=== PATIENT | female | born 1930 | race Caucasian/White ===

== ENCOUNTER 2019-10-16 15:40 | Emergency (ER) | payer MEDICARE ==
[~2019-10-16] VITALS: Ht 160 cm; Wt 54.4 kg
--- NOTE | 2019-10-16 16:36 | Diagnostic Imaging Report ---
INDICATION: Injury to right hand. TECHNIQUE: AP, oblique, and lateral views of the right hand were obtained. FINDINGS: There is an acute fracture of the base of the 4th proximal phalanx extending to the MCP joint. There is dislocation of the 2nd MCP joint with dorsal displacement of the proximal phalanx relative to the 2nd metacarpal. There is underlying degenerative change of the 1st MCP joint, carpometacarpal joint, and interphalangeal joint. IMPRESSION: Underlying chronic findings. Acute fracture at the base of the 4th proximal phalanx. Dislocation of the 2nd MCP joint. Dictated by: Dictated on workstation # [id number]
--- NOTE | 2019-10-16 16:37 | Diagnostic Imaging Report ---
INDICATION: Right knee pain post injury. TECHNIQUE: AP, oblique, and lateral views of the right knee were obtained. FINDINGS: No fracture or acute bony abnormality is seen. 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 There is no significant joint space narrowing. IMPRESSION: Chronic findings. No acute abnormality of the right knee. Dictated by: Dictated on workstation # [id number]
[2019-10-16] MEDS ORDERED: LIDOCAINE 1% INJ 20 ML 20 ML VIAL INJ ONE (17:00)
--- OUTSIDE RECORDS SUMMARY | 2019-10-16 17:32 | XMS REPORT | Continuity of Care Document ---
Author Organization Unknown Address Unknown Phone Unavailable Allergies There is no data. Medications There is no data. Problems There is no data. Procedures There is no data. Results Test Result Range CULTURE, EAR - 09/25/18 15:42 CULTURE, EAR, EXTERNAL SEE NOTE NRG Encounters ACCT No. Visit Date/Time Discharge Status Pt. Type Provider Facility Loc./Unit Complaint [id number] 04/09/2019 13:40:00 04/09/2019 23:59: [facility] [id number] 09/25/2018 15:00:00 Document Registration
--- NOTE | 2019-10-16 17:48 | ED Upper Extremity ---
General Chief Complaint: Trauma-Non Activation Stated Complaint: FALL Nursing Triage Note: R knee ST (approx 3cm) R wrist ST R forearm ST Superficial abrasion to R lateral elbow. Bruising et deformity noted to R 2nd finger. Nursing Sepsis Screen: No Definite Risk Source: patient, EMS Exam Limitations: no limitations History of Present Illness Date Seen by Provider: Oct 16, 2019 Time Seen by Provider: 15:47 Initial Comments 89-year-old female who was brought to the emergency room by [facility] after tripping and falling at Dr. Craven dental office. She reports that she was walking and when she fell landing on her right hand. She has several skin tears. Right knee, right wrist, right forearm, right elbow. She has obvious deformity to her right second finger. She is alert and oriented on arrival to the emergency room. She denies striking her head, loss of consciousness, head or neck pain. She complains of pain to her right hand, and right knee. Location Injury Occurred: Dentist office. Onset: just prior to arrival Pain/Injury Location: right hand Method of Injury: fell Allergies and Home Medications Allergies Coded Allergies: No Known Drug Allergies (Unverified , 10/16/19) Patient Home Medication List Home Medication List Reviewed: Yes Review of Systems Constitutional: see HPI; No chills, No fever Musculoskeletal: see HPI, joint pain (right hand pain.) Skin: see HPI, other (skin tears) All Other Systems Reviewed Negative Unless Noted: Yes Past Xnmnnrg-Tvtuuk-Irinqz Hx Past Med/Social Hx: Reviewed Nursing Past Med/Soc Hx Patient Social History Alcohol Use: Denies Use Recreational Drug Use: No Smoking Status: Never a Smoker 2nd Hand Smoke Exposure: No Recent Foreign Travel: No Contact w/Someone Who Travel: No Recent Infectious Disease Expo: No Recent Hopitalizations: No Seasonal Allergies Seasonal Allergies: Yes Past Medical History Surgeries: No Respiratory: No Cardiac: No Integumentary: No Family Medical History Reviewed Nursing Family Hx Physical Exam Vital Signs Vital Signs - First Documented 10/16/19 15:45 Temp 36.5 Pulse 75 Resp 18 B/P (MAP) 158/96 (116) Pulse Ox 96 O2 Delivery Room Air Capillary Refill : Less Than 3 Seconds Height, Weight, BMI Height: '" Weight: lbs. oz. kg; 21.00 BMI Method: General Appearance: WD/WN, no apparent distress HEENT: PERRL/EOMI, normal ENT inspection, TMs normal, pharynx normal Neck: non-tender, full range of motion, supple, normal inspection Cardiovascular: normal peripheral pulses, regular rate, rhythm, no edema, no gallop, no JVD, no murmur Respiratory: chest non-tender, lungs clear, normal breath sounds, no respirator y distress, no accessory muscle use Gastrointestinal: normal bowel sounds, non tender, soft, no organomegaly, no pulsatile mass Hand: Right, bone tenderness, deformity, ecchymosis (right second finger deformity) Neurologic/Psychiatric: alert, normal mood/affect, oriented x 3 Skin: normal color, warm/dry, other (skin tear to the right forearm, right elbow, right knee.) Procedures/Interventions Splinting and Joint Reduction : Pre-Proc Neuro Vasc Exam: normal Post-Proc Neuro Vasc Exam: normal Progress Digital block was performed on the right second finger with lidocaine 1% without epinephrine.. Gentle pressure was applied and joint was able to be reduced. Patient tolerated procedure well. Patient was placed in finger splint. Pre-and post neurovascular status remained intact. Progress/Results/Core Measures Results/Orders My Orders Orders - LACHO CASEY Knee, Right, 3 Views (10/16/19 15:47) Hand, Right, 3 Views (10/16/19 15:47) Lidocaine 1% Inj 20 Ml (Xylocaine 1% Inj (10/16/19 17:00) Hand, Right, 3 Views (10/16/19 17:22) Dipht,Pertuss(Acell),Tet Adult (Boostrix (10/16/19 18:11) Dipht,Pertuss(Acell),Tet Adult (Boostrix (10/16/19 18:15) Medications Given in ED Current Medications Medications Dose Ordered Sig/Diana Route Start Time Stop Time Status Last Admin Dose Admin Diphtheria/ Tetanus/Acell Pertussis 0.5 ml ONCE ONCE IM 10/16/19 18:15 10/16/19 18:16 DC 10/16/19 18:16 0.5 ML Lidocaine HCl 20 ml ONCE ONCE INJ 10/16/19 17:00 10/16/19 17:01 DC 10/16/19 17:15 20 ML Vital Signs/I&O 10/16/19 10/16/19 15:45 18:23 Temp 36.5 36.6 Pulse 75 82 Resp 18 18 B/P (MAP) 158/96 (116) 169/78 (116) Pulse Ox 96 98 O2 Delivery Room Air Room Air Blood Pressure Mean: 116 Progress Progress Note : Time: 17:46 Progress Note I have seen and evaluated the patient. Her skin tears were all cleaned, approximated, covered with Tegaderm. She was placed in finger splints for fracture and post reduction. Patient tolerated procedure well. She agrees with plan of care, plans for discharge, return precautions were given. Departure Impression Primary Impression: Finger dislocation Qualified Codes: S63.259A - Unspecified dislocation of unspecified finger, initial encounter Additional Impressions: Finger fracture Qualified Codes: S62.644A - Nondisplaced fracture of proximal phalanx of right ring finger, initial encounter for closed fracture Fall Disposition: 01 HOME, SELF-CARE Condition: Stable/Unchanged Departure-Patient Inst. Decision time for Depature: 17:46 Referrals: GLORIA SANCHES DO Patient Instructions: Finger Dislocation, Finger Fracture Add. Discharge Instructions: You may use ibuprofen and Tylenol as needed for pain relief. Ice to the sore areas at 20 minute intervals for pain and swelling. Watch for signs of infection such as increased redness, swelling, drainage, pain. Change your dressings daily. Wear the splint until you follow up with [facility]. Call tomorrow to schedule an appointment with [facility] for close follow-up and possible splinting. Return back to the emergency room for worsening symptoms or concerns as needed. All discharge instructions reviewed with patient and/or family. Voiced understanding. LACHO CASEY Oct 16, 2019 17:48
--- NOTE | 2019-10-16 17:51 | Diagnostic Imaging Report ---
INDICATION: Right hand injury. FINDINGS: Three views of the right hand show degenerative changes of the first MCP and IP joints. There is a fracture at the base of the proximal phalanx of the 4th finger. This is obliquely oriented and minimally angulated and located near the base of the proximal phalanx. IMPRESSION: Degenerative changes in the thumb as noted. Fracture at the base of the proximal phalanx of the right 4th finger. Dictated by: Dictated on workstation # [id number]
[2019-10-16] MEDS ORDERED: TETANUS,DIPTH,PERTUSS P/F (BOOSTRIX) 0.5 ML VIAL IM ONE ×2 (18:11→18:15)
[2019-10-16 18:23] VITALS: BP 169/78
== END 2019-10-16 18:23 | disposition home or self-care (01) ==
LOC: EDUNIT# 15:40 → ER 15:41
DX: S62.644A Nondisplaced fracture of proximal phalanx of right ring finger, initial encounter for closed fracture (principal); S63.260A Dislocation of metacarpophalangeal joint of right index finger, initial encounter; S51.811A Laceration without foreign body of right forearm, initial encounter; S51.011A Laceration without foreign body of right elbow, initial encounter; S81.011A Laceration without foreign body, right knee, initial encounter; Z23 Encounter for immunization; W01.0XXA Fall on same level from slipping, tripping and stumbling without subsequent striking against object, initial encounter; Y92.531 Health care provider office as the place of occurrence of the external cause
CPT/HCPCS: 29130; 64450; 73130; 73562; 90715

== ENCOUNTER → 2021-05-13 | Outpatient (CLI) | payer MEDICARE | LOC: RAD FS 11:44 → MERGE 11:44 | PROVIDERS: ATTEND Nurse Practitioner Family | DX: R05.2 Subacute cough (principal); R06.02 Shortness of breath; R06.09 Other forms of dyspnea ==

== ENCOUNTER → 2021-05-13 | Outpatient (CLI) | payer MEDICARE ==
--- NOTE | 2021-05-13 13:58 | Diagnostic Imaging Report ---
EXAMINATION: Chest, 2 views. HISTORY: Subacute cough, SOB, dyspnea. COMPARISON: None available. FINDINGS: Heart size and pulmonary vasculature are normal. There are coarse interstitial opacities within the lungs with evidence of hyperexpansion suggesting background chronic lung disease. No focal consolidation. Blunting of the left costophrenic angle. No pneumothorax. Degenerative changes of the thoracic spine. Osseous structures are otherwise intact. IMPRESSION: Findings suggestive of background chronic lung disease. Likely left pleural thickening or trace pleural fluid. No other acute radiographic abnormality in the chest. Dictated by: Dictated on workstation # [id number]
== END ==
LOC: RAD FS 12:00
PROVIDERS: ATTEND Nurse Practitioner Family
DX: R05.2 Subacute cough (principal); R06.02 Shortness of breath; R06.00 Dyspnea, unspecified
CPT/HCPCS: 71046

== ENCOUNTER 2021-06-25 01:49 | Emergency (ER) | payer MEDICARE ==
[~2021-06-25] VITALS: Ht 160 cm; Wt 52.2 kg
[2021-06-25] MEDS ORDERED: RT-ALBUTEROL/IPRATROPIUM 3 ML (DUONEB) VIAL INH STA (01:58)
--- NOTE | 2021-06-25 02:01 | ED Dyspnea ---
General Stated Complaint: SOB Source of Information: Patient History of Present Illness Date Seen by Provider: Jun 25, 2021 Time Seen by Provider: 01:51 Initial Comments 89-year-old female presenting with complaints of increased shortness of breath. She has been on multiple antibiotics over the last few weeks. She just was started on Zithromax on June 23. She has a history of asthma per the patient report. She was having wheezing and shortness of breath with speaking and wanting to quit sentences. She denied having chest pain, headache, abdominal pain, swelling. She denied having a history of heart failure or heart problems. She was very anxious with her shortness of breath. Shortly after arriving in the ED she did have an episode of nausea and vomiting with her anxiety. Timing/Duration: Waxing and Waning Severity: Severe Activities at Onset: Activity Prior Episodes/Possible Cause: Chronic Episodes, Frequent Episodes Associated Symptoms: Anxiety, Cough, Wheezing Allergies and Home Medications Allergies Coded Allergies: No Known Drug Allergies (Unverified , 10/16/19) Patient Home Medication List Home Medication List Reviewed: Yes Review of Systems Review of Systems Constitutional: No chills; dizziness; No fever; malaise EENTM: no symptoms reported Respiratory: see HPI, cough, dyspnea on exertion; No hemoptysis; short of breath; No stridor; wheezing Cardiovascular: No chest pain Gastrointestinal: nausea, vomiting (After arrival to the ED feeling anxious with shortness of breath) Genitourinary: no symptoms reported Musculoskeletal: no symptoms reported Skin: No rash Psychiatric/Neurological: Anxiety; Denies Headache Past Ugutmsu-Nawhke-Yzolac Hx Patient Social History Tobacco Use?: No Seasonal Allergies Seasonal Allergies: Yes Past Medical History Surgeries: No Respiratory: No Cardiac: No Integumentary: No Physical Exam Vital Signs Vital Signs - First Documented 06/25/21 06/25/21 06/25/21 01:55 02:00 03:36 Temp 35.9 Pulse 93 Resp 25 B/P (MAP) 198/101 (133) Pulse Ox 85 O2 Delivery Room Air O2 Flow Rate 2.00 FiO2 85 Capillary Refill : Height, Weight, BMI Height: '" Weight: lbs. oz. 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, 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1 10.0-14.5 % Platelet Count 171 130-400 10^3/uL Mean Platelet Volume 9.7 9.0-12.2 fL Immature Granulocyte % (Auto) 0 % Neutrophils (%) (Auto) 41 L 42-75 % Lymphocytes (%) (Auto) 38 12-44 % Monocytes (%) (Auto) 6 0-12 % Eosinophils (%) (Auto) 14 H 0-10 % Basophils (%) (Auto) 1 0-10 % Neutrophils # (Auto) 1.6 L 1.8-7.8 10^3/uL Lymphocytes # (Auto) 1.5 1.0-4.0 10^3/uL Monocytes # (Auto) 0.2 0.0-1.0 10^3/uL Eosinophils # (Auto) 0.6 H 0.0-0.3 10^3/uL Basophils # (Auto) 0.0 0.0-0.1 10^3/uL Immature Granulocyte # (Auto) 0.0 0.0-0.1 10^3/uL Neutrophils % (Manual) 49 % Lymphocytes % (Manual) 21 % Monocytes % (Manual) 7 % Eosinophils % (Manual) 14 % Basophils % (Manual) 1 % Atypical Lymphocytes 5 % Reactive Lymphocytes 3 % Blood Morphology Comment NORMAL Sodium Level 129 L 135-145 MMOL/L Potassium Level 3.8 3.6-5.0 MMOL/L Chloride Level 92 L 98-107 MMOL/L Carbon Dioxide Level 25 21-32 MMOL/L Anion Gap 12 5-14 MMOL/L Blood Urea Nitrogen 10 7-18 MG/DL Creatinine 0.54 L 0.60-1.30 MG/DL Estimat Glomerular Filtration Rate 88 BUN/Creatinine Ratio 19 Glucose Level 140 H 70-105 MG/DL Lactic Acid Level 1.66 0.50-2.00 MMOL/L Calcium Level 9.2 8.5-10.1 MG/DL Corrected Calcium 9.0 8.5-10.1 MG/DL Magnesium Level 2.0 1.6-2.4 MG/DL Total Bilirubin 0.5 0.1-1.0 MG/DL Aspartate Amino Transf (AST/SGOT) 22 5-34 U/L Alanine Aminotransferase (ALT/SGPT) 7 0-55 U/L Alkaline Phosphatase 81 40-136 U/L C-Reactive Protein 0.30 <0.50 MG/DL Total Protein 7.1 6.4-8.2 GM/DL Albumin 4.3 3.2-4.5 GM/DL My Orders Orders - LAVELLE ARCEO MD Cbc With Automated Diff (06/25/21:58) Comprehensive Metabolic Panel (06/25/21 01:58) Blood Culture (06/25/21 01:58) Chest 1 View Ap/Pa Only (06/25/21:58) Albuterol/Ipra Inhalation Soln (Duoneb I (06/25/21:58) Magnesium (06/25/21 01:58) Ekg Tracing (06/25/21:58) O2 (06/25/21:58) Ed Iv/Invasive Line Start (06/25/21:58) Sputum Culture (06/25/21 01:58) Monitor-Rhythm Ecg Trace Only (06/25/21:58) Crp Fs (06/25/21:58) Lactic Acid Analyzer (2/10/22 01:58) Svn Small Volume Nebulizer (06/25/21 01:58) Manual Differential (06/25/21 02:05) Albuterol Inhaler (Albuterol) (06/25/21 04:14) Ondansetron Injection (Zofran Injectio (06/25/21 04:45) Medications Given in ED Current Medications Medications Dose Ordered Sig/Diana Route Start Time Stop Time Status Last Admin Dose Admin Ondansetron HCl 4 mg STK-MED ONCE .ROUTE 06/25/21 04:45 06/25/21 04:48 DC 06/25/21 05:00 4 MG Vital Signs/I&O 06/25/21 06/25/21 06/25/21 06/25/21 01:55 02:00 03:36 03:48 Temp 35.9 Pulse 93 80 Resp 25 15 B/P (MAP) 198/101 (133) 120/63 Pulse Ox 85 95 96 O2 Delivery Room Air Nasal Cannula Nasal Cannula Room Air O2 Flow Rate 2.00 2.00 FiO2 85 Progress Progress Note #1: Progress Note Obtain basic labs as well as chest x-ray and electrocardiogram with cardiac enzymes. Try to add in a DuoNeb breathing treatment to help with her shortness of breath. Placed on supplemental oxygen to help with her hypoxia on arrival to the ED. Progress Note #2: Progress Note Patient much improved after breathing treatment. Her breath sounds were more clear and she had significant improvement in her wheezing. Her labs appeared stable without acute significant normality. Her chest x-ray on my review of the 1 view film showed chronic interstitial pulmonary disease similar to prior imaging. No definite infiltrate. She was just started on get another round of antibiotics. She denies having an inhaler currently at home but says she has used them in the past. Will provide an albuterol inhaler with spacer and instruction on its use. Encouraged to follow back up through the clinic for continued concerns. Counseled on follow-up and return precautions. Initial ECG Impression Date: Jun 25, 2021 Initial ECG Impression Time: 03:05 Initial ECG Rate: 85 Initial ECG Rhythm: Normal Sinus Initial ECG Comparisson: No Previous ECG Available Comment Normal sinus rhythm with a heart rate of [address] interval 209 ms. There is multiform PVCs present. Borderline right axis deviation. Borderline prolonged QT interval of 408 ms and QTc interval 486 ms. There is no acute ST elevation. There is no prior tracing available for comparison. Diagnostic Imaging Diagonstic Imaging: Xray Plain Films/CT/US/NM/MRI: chest Comments [facility]. [place], [place] NAME: BRII NUNES [facility] REC#: [id number] PT STATUS: REG ER : 1930 PHYSICIAN: LAVELLE ARCEO MD ADMIT DATE: 06/25/21/ER FS Signed Date of Exam:06/25/21 CHEST 1 VIEW AP/PA ONLY Indication: Shortness of breath, hypoxemia Portable chest 2:27 AM Heart size and pulmonary vascularity are normal. Lungs are clear. There are no effusions or pneumothoraces. IMPRESSION: Negative chest Dictated by: Dictated on workstation # [id number] Dict: 06/25/21527 Trans: 06/25/21528 TCB [id number] Interpreted by: RANJAN OLIVAS MD Electronically signed by: RANJAN OLIVAS MD 06/25/21528 Reviewed: Reviewed by Me Departure Impression Primary Impression: Chronic bronchitis with acute exacerbation Additional Impression: Dyspnea Qualified Codes: R06.02 - Shortness of breath Disposition: 01 HOME, SELF-CARE Condition: Improved Departure-Patient Inst. Decision time for Depature: 04:32 Referrals: BHAVYA STALLINGS DO (PCP/Family) Primary Care Physician Patient Instructions: How to Use a Metered Dose Inhaler ED, Shortness of Breath, Adult ED, How to Use a Spacer, Shortness of Breath (Dyspnea) Add. Discharge Instructions: Finish the antibiotics you were prescribed from the clinic on June 23. Use the albuterol inhaler with the spacer to help get more medicine into your lungs. Use 2 puffs every 4 hours as needed for shortness of breath Check back with Dr. Stallings and the primary care clinic for continued shortness of breath or if not improving LAVELLE ARCEO MD Jun 25, 2021 02:01
[2021-06-25 02:13] LABS: BASOPHILS % (AUTO) 1 % (0-10); EOSINOPHILS # (AUTO) 0.6 10^3/uL (0.0-0.3); EOSINOPHILS % (AUTO) 14 % (0-10); HEMATOCRIT 40 % (35-52); HEMOGLOBIN 13.2 g/dL (11.5-16.0); LYMPHOCYTES # (AUTO) 1.5 10^3/uL (1.0-4.0); LYMPHOCYTES % (AUTO) 38 % (12-44); MEAN CORPUSCULAR HEMOGLOBIN 30 pg (25-34); MEAN CORPUSCULAR HGB CONC 33 g/dL (32-36); MEAN CORPUSCULAR VOLUME 90 fL (80-99); MEAN PLATELET VOLUME 9.7 fL (9.0-12.2); MONOCYTES # (AUTO) 0.2 10^3/uL (0.0-1.0); MONOCYTES % (AUTO) 6 % (0-12); NEUTROPHILS # (AUTO) 1.6 10^3/uL (1.8-7.8); NEUTROPHILS % (AUTO) 41 % (42-75); PLATELET COUNT 171 10^3/uL (130-400)
[2021-06-25 02:50] LABS: ALBUMIN 4.3 GM/DL (3.2-4.5); BILIRUBIN,TOTAL 0.5 MG/DL (0.1-1.0); CALCIUM 9.2 MG/DL (8.5-10.1); CREATININE SERUM 0.54 MG/DL (0.60-1.30); POTASSIUM 3.8 MMOL/L (3.6-5.0); TOTAL PROTEIN 7.1 GM/DL (6.4-8.2)
[2021-06-25 03:05] LABS: ATYPICAL LYMPHOCYTES 5 %; BASOPHILS % (MANUAL) 1 %; EOSINOPHILS % (MANUAL) 14 %; LYMPHOCYTES % (MANUAL) 21 %; MONOCYTES % (MANUAL) 7 %; NEUTROPHILS % (MANUAL) 49 %; RBC MORPH NORMAL; REACTIVE LYMPHOCYTES 3 %
[2021-06-25 03:48] VITALS: BP 120/63
[2021-06-25] MEDS ORDERED: RT-ALBUTEROL HFA 8.5 GM INHALER IH STA (04:14)
[2021-06-25] MEDS ORDERED: ONDANSETRON 4 MG/2 ML (SDV) Z0FRAN ONE (04:45)
[2021-06-25] MEDS ORDERED: RX-ONDANSETRON 4 MG ODT (ZOFRAN) PPK #4 PO STA (04:49)
--- NOTE | 2021-06-25 05:30 | Diagnostic Imaging Report ---
Indication: Shortness of breath, hypoxemia Portable chest 2:27 AM Heart size and pulmonary vascularity are normal. Lungs are clear. There are no effusions or pneumothoraces. IMPRESSION: Negative chest Dictated by: Dictated on workstation # [id number]
== END 2021-06-25 05:05 | disposition home or self-care (01) ==
LOC: EDUNIT# 01:49 → ER FS 01:52
DX: J20.9 Acute bronchitis, unspecified (principal); J45.909 Unspecified asthma, uncomplicated
CPT/HCPCS: 36415; 71045; 80053; 83605; 83735; 85007; 85027; 86141; 87040; 93005; 93041; 94640

== ENCOUNTER 2021-07-01 22:07 | Emergency (ER) | payer MEDICARE ==
[~2021-07-01] VITALS: Ht 160 cm; Wt 52.2 kg
[2021-07-01] MEDS ORDERED: RT-ALBUTEROL/IPRATROPIUM 3 ML (DUONEB) VIAL INH STA (22:11)
--- NOTE | 2021-07-01 22:21 | ED Dyspnea ---
General Stated Complaint: SOA Source of Information: Patient, Old Records History of Present Illness Date Seen by Provider: Jul 01, 2021 Time Seen by Provider: 22:08 Initial Comments 89 yo female presenting with recurrent shortness of breath that came on suddenly this evening for her. She had similar presentation with ED visit last Tuesday night. She has recently been on multiple antibiotics and was sent with albuterol inhaler with spacer from the ED when discharged but she states she has not used it. She also has not followed up with clinic since she left last week. She is very anxious and short tempered on arrival to the ED. She has not had fever, chills, abdominal pain. She has chest tightness and shortness of breath. Timing/Duration: Waxing and Waning Associated Symptoms: Anxiety, Chest Pain (tightness), Cough, Wheezing Allergies and Home Medications Allergies Coded Allergies: No Known Drug Allergies (Unverified , 10/16/19) Patient Home Medication List Home Medication List Reviewed: Yes Review of Systems Review of Systems Constitutional: No chills, No fever EENTM: no symptoms reported Respiratory: cough, dyspnea on exertion; No hemoptysis; short of breath; No st ridor; wheezing Cardiovascular: chest pain (tightness in chest) Gastrointestinal: No nausea, No vomiting Genitourinary: No dysuria Musculoskeletal: no symptoms reported Skin: No rash Psychiatric/Neurological: Denies Headache Past Satblyb-Rcswic-Titdoe Hx Patient Social History Tobacco Use?: No Immunizations Up To Date First/Initial COVID19 Vaccinat: 07/06 Second COVID19 Vaccination Andres: 08/03 Seasonal Allergies Seasonal Allergies: Yes Past Medical History Surgeries: No Respiratory: No Cardiac: No Integumentary: No Physical Exam Vital Signs Vital Signs - First Documented Capillary Refill : Height, Weight, BMI Height: '" Weight: lbs. oz. kg; 20.00 BMI Method: General Appearance: Anxious, Moderate Distress HEENT: Pharynx Normal Respiratory: Chest Non Tender, Accessory Muscle Use, Decreased Breath Sounds, Respiratory Distress; No Stridor; Wheezing Cardiovascular: Regular Rate, Rhythm, Normal Peripheral Pulses Gastrointestinal: Normal Bowel Sounds, No Pulsatile Mass, Non Tender, Soft Extremity: Normal Capillary Refill, No Pedal Edema Neurologic/Psychiatric: Alert Skin: Normal Color, Warm/Dry Focused Exam Lactate Level 07/01/21 22:55: Lactic Acid Level 0.80 Lactic Acid Level Laboratory Tests Test 07/01/21 22:55 Lactic Acid Level 0.80 MMOL/L (0.50-2.00) Progress/Results/Core Measures Results/Orders Lab Results Laboratory Tests Test 07/01/21 22:18 07/01/21 22:55 Range/Units White Blood Count 4.5 4.3-11.0 10^3/uL Red Blood Count 4.43 3.80-5.11 10^6/uL Hemoglobin 13.2 11.5-16.0 g/dL Hematocrit 39 35-52 % Mean Corpuscular Volume 89 80-99 fL Mean Corpuscular Hemoglobin 30 25-34 pg Mean Corpuscular Hemoglobin Concent 34 32-36 g/dL Red Cell Distribution Width 13.2 10.0-14.5 % Platelet Count 219 130-400 10^3/uL Mean Platelet Volume 9.8 9.0-12.2 fL Immature Granulocyte % (Auto) 0 % Neutrophils (%) (Auto) 33 L 42-75 % Lymphocytes (%) (Auto) 33 12-44 % Monocytes (%) (Auto) 7 0-12 % Eosinophils (%) (Auto) 25 H 0-10 % Basophils (%) (Auto) 2 0-10 % Neutrophils # (Auto) 1.5 L 1.8-7.8 10^3/uL Lymphocytes # (Auto) 1.5 1.0-4.0 10^3/uL Monocytes # (Auto) 0.3 0.0-1.0 10^3/uL Eosinophils # (Auto) 1.1 H 0.0-0.3 10^3/uL Basophils # (Auto) 0.1 0.0-0.1 10^3/uL Immature Granulocyte # (Auto) 0.0 0.0-0.1 10^3/uL Neutrophils % (Manual) 38 % Lymphocytes % (Manual) 30 % Monocytes % (Manual) 5 % Eosinophils % (Manual) 23 % Basophils % (Manual) 1 % Atypical Lymphocytes 2 % Reactive Lymphocytes 1 % Blood Morphology Comment NORMAL Sodium Level 129 L 135-145 MMOL/L Potassium Level 4.4 3.6-5.0 MMOL/L Chloride Level 91 L 98-107 MMOL/L Carbon Dioxide Level 25 21-32 MMOL/L Anion Gap 13 5-14 MMOL/L Blood Urea Nitrogen 10 7-18 MG/DL Creatinine 0.51 L 0.60-1.30 MG/DL Estimat Glomerular Filtration Rate 89 BUN/Creatinine Ratio 20 Glucose Level 107 H 70-105 MG/DL Calcium Level 9.4 8.5-10.1 MG/DL Corrected Calcium 9.2 8.5-10.1 MG/DL Magnesium Level 2.3 1.6-2.4 MG/DL Total Bilirubin 0.5 0.1-1.0 MG/DL Aspartate Amino Transf (AST/SGOT) 23 5-34 U/L Alanine Aminotransferase (ALT/SGPT) 8 0-55 U/L Alkaline Phosphatase 90 40-136 U/L Troponin I < 0.30 <0.30 NG/ML C-Reactive Protein 0.30 <0.50 MG/DL Pro-B-Type Natriuretic Peptide 587.8 H <75.0 PG/ML Total Protein 7.3 6.4-8.2 GM/DL Albumin 4.3 3.2-4.5 GM/DL Blood Gas Puncture Site RT.RADIAL Blood Gas Patient Temperature 36.4 Arterial Blood pH 7.44 H 7.37-7.43 Arterial Blood Partial Pressure CO2 38 35-45 MMHG Arterial Blood Partial Pressure O2 59 L 79-93 MMHG Arterial Blood HCO3 26 23-27 MMOL/L Arterial Blood Total CO2 27.0 21.0-31.0 MMOL/L Arterial Blood Oxygen Saturation 91 L 94-100 % Arterial Blood Base Excess 1.7 -2.5-2.5 MMOL/L Rafi Test YES-POS Blood Gas Ventilator Setting NO Blood Gas Inspired Oxygen ROOM AIR Lactic Acid Level 0.80 0.50-2.00 MMOL/L My Orders Orders - LAVELLE ARCEO MD Albuterol/Ipra Inhalation Soln (Duoneb I (07/01/21 22:11) Svn Small Volume Nebulizer (07/01/21 22:11) Cbc With Automated Diff (07/01/21 22:11) Comprehensive Metabolic Panel (07/01/21 22:11) Blood Culture (07/01/21 22:11) Chest 1 View Ap/Pa Only (07/01/21 22:11) Magnesium (07/01/21 22:11) Ekg Tracing (07/01/21 22:11) O2 (07/01/21 22:11) Ed Iv/Invasive Line Start (07/01/21 22:11) Sputum Culture (07/01/21 22:11) Monitor-Rhythm Ecg Trace Only (07/01/21 22:11) Crp Fs (07/01/21 22:11) Lactic Acid Analyzer (07/01/21 22:11) Troponin I Fs (07/01/21 22:11) Probnp Fs (07/01/21 22:11) Manual Differential (07/01/21 22:18) Arterial Blood Gas (07/01/21 23:01) Albuterol Inhaler (Albuterol) (07/01/21 23:33) Vital Signs/I&O 07/01/21 07/01/21 07/01/21 22:08 22:08 22:08 Temp 36.4 Pulse 97 Resp 22 B/P (MAP) 190/91 (124) Pulse Ox 92 O2 Delivery Room Air Nasal Cannula Room Air O2 Flow Rate 4.00 Progress Progress Note #1: Progress Note Last week she had improved significantly with duoneb breathing treatment. Will try repeating this and check labs, ABG, CXR, ECG, cardiac enzymes, blood cultures with lactic acid. Initial room air O2 saturation was 75%. Progress Note #2: Progress Note CBC shows a white blood cell count of 4.5 with increased number of eosinophils. She has chemistry with hyponatremia of 129. Her renal hepatic function her stable. She has troponin less than 0.3. Her electrocardiogram does not show acute ST elevation. Her chest x-ray shows some increased pulmonary vascular congestion. Her proBNP is slightly elevated at 587. Her ABG shows a pH of 7.44 with a PCO2 of 38 and a PO2 of 59 on room air for an O2 saturation of 91%. Progress Note #3: Progress Note patient doing much better after breathing treatment and room air oxygen saturation up to 100% as she is resting in the bed. She reports losing the inhaler that was sent with her last week. Will get her another one with a spacer to help with shortness of breath. Encourage she continue with plans to move into assisted living or [facility]ci where she has more assistance and someone to help with her meds. Check with clinic if having more problems during the day. At this time with her having O2 saturation going up to 100% on room air and resolved shortness of breath with breathing treatment will treat with albuterol MDI with spacer. She does not have anything to qualify for admit to the hospital at this time but she should improve with using her inhaler and the spacer Initial ECG Impression Date: Jul 01, 2021 Initial ECG Impression Time: 22:46 Initial ECG Rate: 91 Initial ECG Rhythm: Normal Sinus Initial ECG Comparisson: Unchanged Comment Normal sinus rhythm with a heart rate of 91 bpm. NC interval 199 ms. Borderline right axis deviation. No acute ST elevation. QT interval 388 ms with a QTc interval 478 ms. Appears similar to prior tracings in the system. Diagnostic Imaging Diagonstic Imaging: Xray Plain Films/CT/US/NM/MRI: chest Comments NAME: [facility] REC#: [id number] PT STATUS: REG ER : 1930 PHYSICIAN: LAVELLE ARCEO MD ADMIT DATE: 07/01/21/ER FS Signed Date of Exam:07/01/21 CHEST 1 VIEW AP/PA ONLY EXAMINATION: Chest 1 view HISTORY: short of breath COMPARISON: 06/25/2021 FINDINGS: Heart size is stable with prominence of the pulmonary vasculature. Mild interstitial opacities within the lung bases. No pleural effusion or pneumothorax. The osseous structures are intact. IMPRESSION: 1. Mild pulmonary vascular congestion. Mild bibasilar interstitial opacities which can be seen with pulmonary edema, atelectasis, or atypical infection. Dictated by: Dictated on workstation # [id number] Dict: 07/01/212241 Trans: 07/01/212258 [facility] [id number] Interpreted by: XIOMARA OLIVAS DO Electronically signed by: XIOMARA OLIVAS DO 07/01/219 Reviewed: Reviewed by Me Departure Impression Primary Impression: Shortness of breath Additional Impression: Pulmonary vascular congestion Disposition: 01 HOME, SELF-CARE Condition: Improved Departure-Patient Inst. Decision time for Depature: 23:36 Referrals: BHAVYA STALLINGS DO (PCP/Family) Primary Care Physician Patient Instructions: How to Use a Metered Dose Inhaler ED, How to Use a Spacer, Shortness of Breath, Adult ED Add. Discharge Instructions: Your tests do not show pneumonia, heart attack or any mass in your lungs. Your breathing improved with using the Albuterol medicine for inflammation in your airways and lungs. Use the Albuterol inhaler 2 puffs inhaled every 4 hours as needed for shortness of breath/wheezing. You should use this with a spacer to get more medicine into your lungs when you breath it in. Continue to work on arranging for move to Assisted Living facility or prison. Check with Dr. Stallings and his office for continued concerns or more problems. LAVELLE ARCEO MD Jul 01, 2021 22:21
[2021-07-01 22:41] LABS: BASOPHILS # (AUTO) 0.1 10^3/uL (0.0-0.1); BASOPHILS % (AUTO) 2 % (0-10); EOSINOPHILS # (AUTO) 1.1 10^3/uL (0.0-0.3); EOSINOPHILS % (AUTO) 25 % (0-10); HEMATOCRIT 39 % (35-52); HEMOGLOBIN 13.2 g/dL (11.5-16.0); LYMPHOCYTES # (AUTO) 1.5 10^3/uL (1.0-4.0); LYMPHOCYTES % (AUTO) 33 % (12-44); MEAN CORPUSCULAR HEMOGLOBIN 30 pg (25-34); MEAN CORPUSCULAR HGB CONC 34 g/dL (32-36); MEAN CORPUSCULAR VOLUME 89 fL (80-99); MEAN PLATELET VOLUME 9.8 fL (9.0-12.2); MONOCYTES # (AUTO) 0.3 10^3/uL (0.0-1.0); MONOCYTES % (AUTO) 7 % (0-12); NEUTROPHILS # (AUTO) 1.5 10^3/uL (1.8-7.8); NEUTROPHILS % (AUTO) 33 % (42-75); PLATELET COUNT 219 10^3/uL (130-400); WHITE BLOOD COUNT 4.5 10^3/uL (4.3-11.0)
--- NOTE | 2021-07-01 22:44 | Diagnostic Imaging Report ---
EXAMINATION: Chest 1 view HISTORY: short of breath COMPARISON: 06/25/2021 FINDINGS: Heart size is stable with prominence of the pulmonary vasculature. Mild interstitial opacities within the lung bases. No pleural effusion or pneumothorax. The osseous structures are intact. IMPRESSION: 1. Mild pulmonary vascular congestion. Mild bibasilar interstitial opacities which can be seen with pulmonary edema, atelectasis, or atypical infection. Dictated by: Dictated on workstation # [id number]
[2021-07-01 23:04] LABS: ATYPICAL LYMPHOCYTES 2 %; BASOPHILS % (MANUAL) 1 %; EOSINOPHILS % (MANUAL) 23 %; LYMPHOCYTES % (MANUAL) 30 %; MONOCYTES % (MANUAL) 5 %; NEUTROPHILS % (MANUAL) 38 %; RBC MORPH NORMAL; REACTIVE LYMPHOCYTES 1 %
[2021-07-01 23:06] LABS: BILIRUBIN,TOTAL 0.5 MG/DL (0.1-1.0); BUN/CREATININE RATIO 20; CALCIUM 9.4 MG/DL (8.5-10.1); CARBON DIOXIDE 25 MMOL/L (21-32); CHLORIDE 91 MMOL/L (98-107); CREATININE SERUM 0.51 MG/DL (0.60-1.30); GFR ESTIMATED 89; GLUCOSE 107 MG/DL (70-105); MAGNESIUM 2.3 MG/DL (1.6-2.4); POTASSIUM 4.4 MMOL/L (3.6-5.0); SODIUM 129 MMOL/L (135-145)
[2021-07-01 23:07] LABS: ALANINE AMINOTRANSFERASE 8 U/L (0-55); ALBUMIN 4.3 GM/DL (3.2-4.5); ALKALINE PHOSPHATASE 90 U/L (40-136); TOTAL PROTEIN 7.3 GM/DL (6.4-8.2)
[2021-07-01 23:09] LABS: ABG BASE EXCESS 1.7 MMOL/L (-2.5-2.5); ABG OXYGEN SATURATION 91 % (94-100); ABG PCO2 38 MMHG (35-45); ABG PH 7.44 (7.37-7.43); ABG PO2 59 MMHG (79-93); ALLENS TEST YES-POS
[2021-07-01 23:10] LABS: INSPIRED O2 ROOM AIR
[2021-07-01 23:11] LABS: PATIENT TEMP 36.4; VENTILATOR NO
[2021-07-01] MEDS ORDERED: RT-ALBUTEROL HFA 8.5 GM INHALER IH STA (23:33)
[2021-07-01 23:45] VITALS: BP 148/60
== END 2021-07-01 23:45 | disposition home or self-care (01) ==
LOC: EDUNIT# 22:07 → ER FS 22:08
DX: R06.02 Shortness of breath (principal); R09.89 Other specified symptoms and signs involving the circulatory and respiratory systems
CPT/HCPCS: 36415; 71045; 80053; 82805; 83605; 83735; 83880; 84484; 85007; 85027; 86141; 87040; 87070; 87205; 93005; 93041